=== PATIENT | male | born 1960 | race African-American/Black ===

== ENCOUNTER 2021-05-26 13:00 | Emergency (ER) | payer BC ==
[~2021-05-26] VITALS: Ht 180.3 cm; Wt 99.5 kg
[2021-05-26 13:15] VITALS: BP 128/70
[2021-05-26] MEDS ORDERED: NEOMY/BACITR/POLYMYXIN OINT PACKET. TP ONE (13:45)
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
== END 2021-05-26 14:20 | disposition home or self-care (01) ==
LOC: ER 13:00
DX: S80.212A Abrasion, left knee, initial encounter (principal); S50.811A Abrasion of right forearm, initial encounter; W22.8XXA Striking against or struck by other objects, initial encounter; Y93.89 Activity, other specified; Y92.89 Other specified places as the place of occurrence of the external cause; Y99.8 Other external cause status
CPT/HCPCS: 99283